=== PATIENT | female | born 1990 | race Caucasian/White ===

== ENCOUNTER → 2017-08-28 | Outpatient (CLI) | payer OTHER ==
[2017-08-28 13:00] LABS: GTGD 50 Grams
[2017-08-29 11:28] LABS: AFP CONCENTRATION 28.4 NG/ML; AFP MULTIPLE OF MEDIAN 1.13; AFPTS GESTATIONAL AGE 16.3 WEEKS; AFPTS INSULIN DEP DIABETIC? NO; AFPTS MATERNAL WT 241 LBS; ALPHA-FETOPROTEIN RACE CAUCASIAN=W; ESTRIOL MULTIPLE OF MEDIAN 2.03; HISTORY OF NTD NO; INHIBIN A 143 PG/ML; INHIBIN A MOM 1.04; REPEAT SAMPLE? NO; hCG MULTIPLE OF MEDIAN 0.72
== END | disposition home or self-care (01) ==
LOC: C.LAB1850 10:29
PROVIDERS: ATTEND Obstetrics & Gynecology
DX: Z34.02 Encounter for supervision of normal first pregnancy, second trimester (principal)

== ENCOUNTER → 2017-09-03 | Outpatient (CLI) | payer OTHER ==
[~2017-09-03] MED LIST: ASPI-435 PO; ASPI81CH2 PO; CLIN150C PO; LABE1TAB28 PO; MTR600X PO; OXYC-57 PO; PRENTAB26 PO; SERT50TA PO
== END | disposition home or self-care (01) ==
LOC: C.LAB1850 12:57
PROVIDERS: ATTEND Obstetrics & Gynecology
DX: I12.9 Hypertensive chronic kidney disease with stage 1 through stage 4 chronic kidney disease, or unspecified chronic kidney disease (principal); N18.1 Chronic kidney disease, stage 1

== ENCOUNTER → 2017-09-04 | Outpatient (CLI) | payer OTHER | END | disposition home or self-care (01) | LOC: C.LABSPEC 14:21 | PROVIDERS: ATTEND Obstetrics & Gynecology | DX: N89.8 Other specified noninflammatory disorders of vagina (principal) ==

== ENCOUNTER → 2017-09-25 | Outpatient (CLI) | payer OTHER ==
[2017-09-25 13:09] LABS: BASO % 0.4 %; BASO ABS # 0.04 K/uL (0-0.2); EOS % 1.2 %; EOS ABS # 0.12 K/uL (0-0.5); HEMATOCRIT 36.4 % (37-47); HEMOGLOBIN 12.3 g/dL (12.0-16.0); IG# 0.02 K/uL (0.00-0.02); LYMPH ABS # 2.38 K/uL (1.2-3.4); MEAN CELL VOLUME 86.9 fL (80-100); MEAN CORPUSCULAR HEMOGLOBIN 29.4 pg (25-34); MEAN CORPUSCULAR HGB CONC 33.8 g/dl (32-36); MEAN PLATELET VOLUME 9.5 fL (7.4-10.4); MONO % 7.2 %; MONO ABS # 0.75 K/uL (0.11-0.59); NEUT ABS # 7.05 K/uL (1.4-6.5); PLATELET COUNT 338 K/uL (130-400); RED CELL DISTRIBUTION WIDTH CV 15.1 % (11.5-14.5); RED CELL DISTRIBUTION WIDTH SD 48.5 fL (36.4-46.3); WHITE BLOOD COUNT 10.36 K/uL (4.8-10.8)
== END | disposition home or self-care (01) ==
LOC: C.LAB1850 11:56
PROVIDERS: ATTEND Obstetrics & Gynecology
DX: O26.812 Pregnancy related exhaustion and fatigue, second trimester (principal); R39.89 Other symptoms and signs involving the genitourinary system

== ENCOUNTER → 2017-11-20 | Outpatient (CLI) | payer OTHER ==
[~2017-11-20] MED LIST changes: -ASPI-435 PO; -CLIN150C PO; -MTR600X PO; -OXYC-57 PO
[2017-11-20 14:39] LABS: HEMATOCRIT 35.1 % (37-47); HEMOGLOBIN 11.7 g/dL (12.0-16.0)
== END | disposition home or self-care (01) ==
LOC: C.LAB1850 12:47
PROVIDERS: ATTEND Obstetrics & Gynecology
DX: Z34.03 Encounter for supervision of normal first pregnancy, third trimester (principal)

== ENCOUNTER 2017-12-02 14:22 | Outpatient (CLI) | payer OTHER ==
[~2017-12-02] VITALS: Ht 157.5 cm; Wt 117.0 kg
[2017-12-02] MEDS ORDERED: PRENTAB26 PO (14:35)
[2017-12-02] MEDS ORDERED: LABE1TAB28 PO (14:35)
[2017-12-02] MEDS ORDERED: ASPI81CH2 PO (14:35)
[2017-12-02] MEDS ORDERED: SERT50TA PO (14:35)
[2017-12-02 14:47] VITALS: Ht 157.5 cm; Wt 117.0 kg
== END 2017-12-02 15:45 | disposition home or self-care (01) ==
LOC: C.OPB 14:22 → C.LD 14:22 → C.OPB 15:45
PROVIDERS: ATTEND Obstetrics & Gynecology
DX: O36.8130 Decreased fetal movements, third trimester, not applicable or unspecified (principal); O36.8330 Maternal care for abnormalities of the fetal heart rate or rhythm, third trimester, not applicable or unspecified; Z3A.30 30 weeks gestation of pregnancy; O99.283 Endocrine, nutritional and metabolic diseases complicating pregnancy, third trimester; N18.1 Chronic kidney disease, stage 1; O16.3 Unspecified maternal hypertension, third trimester; E28.2 Polycystic ovarian syndrome; Z79.82 Long term (current) use of aspirin

== ENCOUNTER → 2017-12-11 | Outpatient (CLI) | payer OTHER ==
[2017-12-11 14:43] LABS: BASO % 0.2 %; BASO ABS # 0.02 K/uL (0-0.2); EOS ABS # 0.12 K/uL (0-0.5); HEMATOCRIT 35.7 % (37-47); HEMOGLOBIN 11.9 g/dL (12.0-16.0); IG# 0.02 K/uL (0.00-0.02); LYMPH ABS # 2.52 K/uL (1.2-3.4); MEAN CELL VOLUME 85.8 fL (80-100); MEAN CORPUSCULAR HEMOGLOBIN 28.6 pg (25-34); MEAN CORPUSCULAR HGB CONC 33.3 g/dl (32-36); MEAN PLATELET VOLUME 8.7 fL (7.4-10.4); MONO % 7.2 %; MONO ABS # 0.83 K/uL (0.11-0.59); NEUT % 69.4 %; NEUT ABS # 7.97 K/uL (1.4-6.5); PLATELET COUNT 375 K/uL (130-400); RED CELL DISTRIBUTION WIDTH SD 43.5 fL (36.4-46.3); WHITE BLOOD COUNT 11.48 K/uL (4.8-10.8)
[2017-12-11 14:54] LABS: ALT/SGPT 18 U/L (12-78); AST/SGOT 10 U/L (15-37); CREATININE 0.59 mg/dl (0.60-1.20); URIC ACID 3.7 mg/dl (2.6-7.2)
== END | disposition home or self-care (01) ==
LOC: C.LAB1850 13:08
PROVIDERS: ATTEND Obstetrics & Gynecology
DX: I12.9 Hypertensive chronic kidney disease with stage 1 through stage 4 chronic kidney disease, or unspecified chronic kidney disease (principal)

== ENCOUNTER 2017-12-26 17:27 | Outpatient (CLI) | payer OTHER ==
--- NOTE | 2018-01-01 09:23 | EDITING REQUIRED CODING QUERY ---
DIAGNOSIS NEEDED To promote full compliance with coding requirements relating to patient care, physician participation is requested in all cases of direct marketing coordinator uncertainty. Please assist us with the question(s) below: Coding Question: The patient received care in labor and delivery on 12/26/17 as noted within the record. Please document the diagnosis that is being addressed by the medication/treatment. Provider Response: DIAGNOSIS: WEEKS OF GESTATION: I was not the doctor of record on 12/26/17. Thank you for your assistance, Allie Lazo - Early Childhood Coordinator
--- NOTE | 2018-01-07 08:15 | EDITING REQUIRED CODING QUERY ---
DIAGNOSIS NEEDED To promote full compliance with coding requirements relating to patient care, physician participation is requested in all cases of data coder operator uncertainty. Please assist us with the question(s) below: Coding Question: The patient received care in labor and delivery on 12/26/17 as noted within the record. Please document the diagnosis that is being addressed by the medication/treatment. Provider Response: DIAGNOSIS: Decreased movement in 3rd trimester 35wk WEEKS OF GESTATION: Thank you for your assistance, Allie Lazo - Educational Technology Coordinator
== END 2017-12-26 18:13 | disposition home or self-care (01) ==
LOC: C.LD 17:27 → C.OPB 17:27
PROVIDERS: ATTEND Obstetrics & Gynecology
DX: O36.8130 Decreased fetal movements, third trimester, not applicable or unspecified (principal); Z3A.35 35 weeks gestation of pregnancy

== ENCOUNTER 2018-01-06 00:27 | Outpatient (CLI) | payer OTHER ==
[~2018-01-06] VITALS: Ht 157.5 cm; Wt 122.7 kg
[2018-01-06 01:08] VITALS: Ht 157.5 cm; Wt 122.7 kg
== END 2018-01-06 01:03 | disposition home or self-care (01) ==
LOC: C.LD 00:27 → C.OPB 00:27
PROVIDERS: ATTEND Obstetrics & Gynecology
DX: O36.8190 Decreased fetal movements, unspecified trimester, not applicable or unspecified (principal); Z3A.00 Weeks of gestation of pregnancy not specified

== ENCOUNTER → 2018-01-15 | Outpatient (CLI) | payer OTHER | END | disposition home or self-care (01) | LOC: C.LABSPEC 13:23 | PROVIDERS: ATTEND Obstetrics & Gynecology | DX: O09.93 Supervision of high risk pregnancy, unspecified, third trimester (principal); Z3A.00 Weeks of gestation of pregnancy not specified ==

== ENCOUNTER 2019-09-20 08:18 | Inpatient (IN) ==
--- OUTSIDE RECORDS SUMMARY | 2019-09-20 08:24 | External Medical Summary | Continuity of Care Document ---
:1990 Author Name Nena M.DIan, Provider Address Unavailable Unavailable , Care Team Providers Name Role Phone Unavailable Unavailable Unavailable GORDON SHARP Unavailable Unavailable Unavailable Unavailable Unavailable Problems Polycystic ovarian syndrome (256.4) (E28.2) Hypertension (401.9) (I10) Hypertensive kidney disease with chronic kidney disease stage I (403.90) (I12.9) MRSA (methicillin resistant staph aureus) culture positive ( V02.54) (Z22.322) Encounter for gynecological examination (V72.31) (Z01.419) Dyspareunia (625.0) Amenorrhea (626.0) (N91.2) Abdominal pain, lower (789.09) (R10.30) Allergies and Adverse Reactions No Known Allergies (Allergy) Medications Labetalol HCl - 100 MG Oral Tablet , M.D. Refills: 0 Zoloft 50 MG Oral Tablet , M.D. Refills: 0 Protonix 40 MG Oral Tablet Delayed Release , M.D. Refills: 0 Procedures History of wisdom tooth extraction Statu s: Completed Immunizations Fluzone Quadrivalent 0.5 ML Intramuscular Suspension On: 10:15 Lot #: [id number], SANOFI PASTEUR Tdap (Adacel) On: 20-Nov-2017 12:52 Lot #: [id number], SANOFI PASTEUR Family History Father Family history of hypertension (V17.49) (Z82.49) Status: Act jitendra Grandmother Family history of hypertension (V17.49) (Z82.49) Status: Act jitendra Grandmother Family history of hypertension (V17.49) (Z82.49) Status: Act jitendra Grandfather Family history of hypertension (V17.49) (Z82.49) Status: Act jitendra Grandfather Family history of hypertension (V17.49) (Z82.49) Status: Act jitendra Mother Family history of hyperlipidemia (V18.19) (Z83.438) Status: Active Family history of endometriosis (V19.8) (Z84.2) Status: Acti ve Family history of ovarian cyst (V18.7) (Z84.2) Status: Activ e Social History - Smoking Status Never smoker Plan of Treatment Planned Observations Planned Goals not documented Results No Known Results Results not documented Encounters Appointment; Ernestina Mckeon M.D. 15-Jun-2018 11:15 Encounter Diagnosis: Problem not documented Appointment; Kavita Hobbs M.D. 18-Mar-2018 10:20 Encounter Diagnosis: Problem not documented Appointment; OB SC1, Nonstress Test 27-Jan-2018 11:00 Encounter Diagnosis: Problem not documented Appointment; OBGYN SC2, Ultrasound 22-Jan-2018 11:30 Encounter Diagnosis: Problem not documented Appointment; Kavita Hobbs M.D. 22-Jan-2018 11:10 Encounter Diagnosis: Problem not documented Appointment; OB SC1, Nonstress Test 22-Jan-2018 10:50 Encounter Diagnosis: Problem not documented Appointment; OBGYN SC1, Ultrasound 22-Jan-2018 10:30 Encounter Diagnosis: Problem not documented Appointment; OB SC1, Nonstress Test 19-Jan-2018 11:00 Encounter Diagnosis: Problem not documented Appointment; OB SC1, Nonstress Test 16-Jan-2018 14:20 Encounter Diagnosis: Problem not documented Appointment; Swapna Manley M.D. 15-Jan-2018 11:50 Encounter Diagnosis: Problem not documented Appointment; OB SC1, Nonstress Test 15-Jan-2018 11:00 Encounter Diagnosis: Problem not documented Appointment; OBGYN SC1, Ultrasound 15-Jan-2018 10:30 Encounter Diagnosis: Problem not documented Appointment; OB SC1, Nonstress Test 12-Jan-2018 11:00 Encounter Diagnosis: Problem not documented Appointment; Ernestina Mckeon M.D. 08-Jan-2018 10:50 Encounter Diagnosis: Problem not documented Appointment; OB SC1, Nonstress Test 08-Jan-2018 10:20 Encounter Diagnosis: Problem not documented Appointment; OBGYN SC2, Ultrasound 08-Jan-2018 10:00 Encounter Diagnosis: Problem not documented Appointment; Rikki Johnson M.D. 01-Jan-2018 10:30 Encounter Diagnosis: Problem not documented Appointment; OB SC1, Nonstress Test 01-Jan-2018 10:00 Encounter Diagnosis: Problem not documented Appointment; OBGYN SC2, Ultrasound 01-Jan-2018 9:45 Encounter Diagnosis: Problem not documented Appointment; Kavita Hobbs M.D. 25-Dec-2017 10:50 Encounter Diagnosis: Problem not documented Appointment; OB SC1, Nonstress Test 25-Dec-2017 10:20 Encounter Diagnosis: Problem not documented Appointment; OBGYN SC2, Ultrasound 25-Dec-2017 10:00 Encounter Diagnosis: Problem not documented Appointment; Noreen Mensah M.D. 18-Dec-2017 11:20 Encounter Diagnosis: Problem not documented Appointment; OB SC1, Nonstress Test 18-Dec-2017 10:50 Encounter Diagnosis: Problem not documented Appointment; OBGYN SC1, Ultrasound 18-Dec-2017 10:30 Encounter Diagnosis: Problem not documented Appointment; Rikki Johnson M.D. 04-Dec-2017 11:10 Encounter Diagnosis: Problem not documented Appointment; OB SC1, Nonstress Test 02-Dec-2017 13:00 Encounter Diagnosis: Problem not documented Appointment; Katie Palacios DO 20-Nov-2017 11:40 Encounter Diagnosis: Problem not documented Appointment; OBGYN SC2, Ultrasound 20-Nov-2017 11:00 Encounter Diagnosis: Problem not documented Appointment; Swapna Manley M.D. 24-Oct-2017 11:30 Encounter Diagnosis: Problem not documented Appointment; OBGYN SC1, Ultrasound 24-Oct-2017 11:00 Encounter Diagnosis: Problem not documented Appointment; OB SC1, Nursing Station 16-Oct-2017 13:45 Encounter Diagnosis: Problem not documented Appointment; Noreen Mensah M.D. 26-Sep-2017 10:30 Encounter Diagnosis: Problem not documented
[2019-09-20] MEDS ORDERED: OXYTOCIN 30 UNITS/500 ML BAG IV PRN (08:28)
[2019-09-20] MEDS ORDERED: ACETAMINOPHEN 325 MG TAB PO PRN (08:28)
[2019-09-20] MEDS ORDERED: HYDROCORTISONE ACETATE 25 MG SUPP PR PRN ×2 (08:28→12:34)
[2019-09-20] MEDS ORDERED: DIPHTHERIA/TETANUS/PERTUSSIS 0.5 ML SYR/VIAL IM ONE (08:28)
[2019-09-20] MEDS ORDERED: bisacodyL 10 MG SUPP PR PRN (08:28)
[2019-09-20] MEDS ORDERED: SUPERCREAM 0.870% 15 GM JAR EXT PRN ×2 (08:28→12:34)
[2019-09-20] MEDS ORDERED: BENZOCAINE 20% AER SPR 82.5 GM CAN EXT PRN ×2 (08:28→12:34)
[2019-09-20] MEDS: LACTATED RINGER'S 1,000 ML IV SCH ×2 (08:55→22:27)
[2019-09-20] MEDS ORDERED: CITRIC ACID/SODIUM CITRATE 15 ML UDC PO SCH (09:15)
[2019-09-20 09:17] LABS: Basophils # (auto) 0.02 K/uL (0-0.2); Basophils % (auto) 0.1 %; Eosinophils # (auto) 0.13 K/uL (0-0.5); Eosinophils % (auto) 0.9 %; Hemoglobin 12.5 g/dL (12.0-16.0); Immature Granulocytes # (auto) 0.02 K/uL (0.00-0.02); Immature Granulocytes % (auto) 0.1 %; Lymphocytes % (auto) 18.8 %; Mean Corpuscular Hemoglobin 28.2 pg (25-34); Mean Corpuscular Volume 85.6 fL (80-100); Mean Platelet Volume 9.1 fL (7.4-10.4); Monocytes # (auto) 0.86 K/uL (0.11-0.59); Monocytes % (auto) 6.2 %; Neutrophils # (auto) 10.21 K/uL (1.4-6.5); Neutrophils % (auto) 73.9 %; Platelet Count 332 K/uL (130-400); RDW Coefficient of Variation 15.1 % (11.5-14.5); Red Blood Count 4.44 M/uL (4.2-5.4); White Blood Count 13.84 K/uL (4.8-10.8)
--- NOTE | 2019-09-20 09:27 | Obstetrical Progress Note ---
Date of Service September 20, 2019 Subjective Admit Note 28 F P1001 admitted with SROM clear fluid this AM. Patient is a repeat C- section who does not want a TOLAC. Her GBS is negative. She has chronic hypertension on Labetalol 100 mg PO daily and well controlled BP. Consents signed. H&P dictated. Results & Data Vital Signs (Past 12 Hours) Vital Signs Pulse BP Pulse Ox 09/20/19 09:18 87 99 09/20/19 09:13 95 H 100 09/20/19 09:08 97 H 100 09/20/19 09:03 93 H 100 09/20/19 08:58 111 H 100 09/20/19 08:27 90 136/63
[2019-09-20] MEDS ORDERED: CEFAZOLIN 3000MG 72.5 ML IV SCH (09:30)
[2019-09-20 09:34] LABS: Mean Corpuscular Hgb Conc 32.9 g/dL (32-36)
[2019-09-20] MEDS ORDERED: MoRPHine SULFATE PF 1 MG/ML 10 ML AMP/VIAL ONE (09:40)
[2019-09-20] MEDS ORDERED: fentaNYL citrate 100 MCG/2 ML VIAL ONE (09:41)
--- NOTE | 2019-09-20 09:46 | Anesthesiology Consultation ---
Date of Service September 20, 2019 Assessment & Plan (1) Encounter for pre-operative examination: Chart Review Chart Review: Acceptable Risk for Surgery and Patient NOT seen in Pre Admission Testing Consults Requested none History Surgery Operation Date: 09/20/19 09:30 Proposed Procedures p Section in LD - Andrew Streeter MD Height/Weight Height: 5 ft 2 in Weight: 136.985 kg Allergies Allergy/AdvReac Type Severity Reaction Status Date / Time No Known Allergies Allergy Unverified 02/04/18 22:22 Medications Home Medications Medication Instructions Recorded Confirmed Last Taken Labetalol (Normodyne) 100 mg PO DAILY #0 tab 12/02/17 09/20/19 1 Day Ago ~09/19/19 Multivit/Min/Iron/Fol Ac/Pren 1 tab PO DAILY #0 tab 12/02/17 1 Day Ago ( Vitamin) ~09/19/19 NPO Date Last Intake of Fluids: 09/20/19 Time Last Intake of Fluids: 04:00 Date Last Intake of Solids: 09/20/19 Time Last Intake of Solids: 00:00 Past Medical History Medical History (Updated 09/20/19 @ 09:46 by Rohan Moody MD) Hypertension Morbid obesity Past Surgical History Surgical History Hx of section [place] teeth extracted Social History Smoking Status: Never smoker Do You Dip or Chew Tobacco: No Hx Alcohol Use: No Hx Substance Use: No substance use type: does not use Physical Exam Vital Signs Last Vital Signs Temp 37.1 C 09/20/19 09:00 Pulse 96 H 09/20/19 09:43 Resp 18 09/20/19 09:00 BP 156/82 H 09/20/19 09:28 Pulse Ox 100 09/20/19 09:43 Testing Laboratory Results 09/20/19 09:04
[2019-09-20] MEDS ORDERED: OXYTOCIN 10 UNITS/ML VIAL ONE ×2 (09:51→11:20)
--- NOTE | 2019-09-20 10:02 | History and Physical Report ---
REASON FOR ADMISSION: Repeat section with spontaneous rupture of membranes in labor. HISTORY OF PRESENT ILLNESS: The patient is a 28-year-old female, para 1-0-0-1 at 37 weeks and 2 days, admitted with spontaneous rupture of membranes this morning at 6:30. She claims that all weekend, she was possibly leaking, did not show up to the labor room or call. PAST MEDICAL HISTORY: Includes chronic hypertension, history of section, history of preeclampsia, class 3 obesity, 2-vessel umbilical cord and her GBS is negative. SOCIAL HISTORY: Denies smoking, alcohol or drug use. FAMILY HISTORY: Non-contributory ROS: neg MEDICATIONS: Include aspirin 81 mg daily, vitamins daily, Protonix 40 mg daily, and labetalol 100 mg p.o. daily. ALLERGIES: No known drug allergies. PHYSICAL EXAMINATION: VITAL SIGNS: Blood pressure 136/63, pulse 87, O2 sat 99. Her weight is 136.98 kilograms for a BMI of 55.2. HEENT: Within normal limits. LUNGS: Clear to auscultation. COR: Regular rate and rhythm. ABDOMEN: Soft, gravid, class 3 obesity. heart tones category 1. EXTREMITIES: Within normal limits. No edema. NEUROLOGIC: Intact. ASSESSMENT: Term at 37 weeks and 2 days with spontaneous rupture of membranes, admitted for a repeat section, declining trial of labor after . LUANND
[2019-09-20] MEDS ORDERED: ONDANSETRON INJ 2 MG/ML 2 ML VIAL ONE (11:20)
--- NOTE | 2019-09-20 12:08 | Post Operative Brief Note ---
Immediate Post Op Note v1 Date of Surgery September 20, 2019 Pre & Post Diagnosis Operation Date: 09/20/19 09:30 Pre-Op Diagnosis: 1. Rupture of membranes 2. Patient desires Repeat . Post-Op Diagnosis: 1. Rupture of membranes 2. Patient desires Repeat . I identified the patient and participated in the time-out.: Yes Procedure Operation Date: 09/20/19 09:30 Actual Procedures p Section in LD Live Female @ 1103(Not Applicable) - Andrew Streeter MD Surgeon Andrew Streeter MD Regional Owner Operator Truck Driver Dr Braden Estimated Blood Loss 500 Findings Consistent with Post-Op Diagnosis Drains Adam Catheter
[2019-09-20] MEDS ORDERED: KETOROLAC 30 MG/ML VIAL IV PRN ×2 (12:34→14:48)
[2019-09-20] MEDS ORDERED: MAGNESIUM HYDROXIDE SUSP 30 ML UDC PO PRN (12:34)
[2019-09-20] MEDS ORDERED: ONDANSETRON INJ 2 MG/ML 2 ML VIAL IV PRN ×2 (12:34→14:48)
[2019-09-20] MEDS ORDERED: IBUPROFEN 600 MG TAB PO PRN (12:34)
[2019-09-20] MEDS ORDERED: MEASLES, MUMPS & RUBELLA VIRUS VIAL SQ ONE (12:34)
[2019-09-20] MEDS ORDERED: DiphenhydrAMINE HCL 50 MG/ML VIAL IV PRN ×2 (12:34→14:48)
[2019-09-20] MEDS ORDERED: SENNA 8.6 MG TAB PO PRN (12:34)
[2019-09-20] MEDS ORDERED: PROMETHAZINE HCL 25 MG in SODIUM CHLORIDE 0.9% 50 ML IV PRN (12:34)
--- NOTE | 2019-09-20 12:46 | Operative Report ---
PREOPERATIVE DIAGNOSIS: at 37 weeks and 2 days with spontaneous rupture of membranes, elective repeat section. POSTOPERATIVE DIAGNOSIS: at 37 weeks and 2 days with spontaneous rupture of membranes, elective repeat section. PROCEDURE: Repeat section, low segment transverse. SURGEON: Andrew Streeter MD BROKERAGE BRANCH MANAGER: Myron Braden. ANESTHESIA: Spinal. CLINICAL HISTORY: The patient is a 28-year-old female, para 1-0-0-1 at 37 weeks and 2 days, admitted today with spontaneous rupture of membranes this morning. Planning for a repeat section. The patient does not want a trial of labor after . The patient was identified prior to the start of procedure and antibiotics were given preop. DESCRIPTION OF PROCEDURE: Under satisfactory spinal anesthesia, the patient was prepped and draped in usual sterile fashion. A low Pfannenstiel incision was made, carrying the incision down through the abdomen in successive layers without difficulty. Upon entering into the abdominal cavity, a bladder flap was then made with sharp and blunt dissection with Metzenbaum scissors. A low segment transverse incision over the lower uterine segment was made. The incision was widened in the AP diameter with blunt dissection. Clear fluid was noted. The amniotic sac was nicked. The was then delivered from the vertex presentation with the aid of fundal pressure delivering a live female. The cord was delayed cord clamping for 1 minute, doubly clamped and cut. Apgars 9 and 9, weight 5 pounds 15 ounces, live female. Cord blood was obtained. Placenta delivered spontaneously and intact. Uterus was then exteriorized. Ring forceps were then placed on both angles and inferior margin. Another ring was then used to dilate the cervix. Clean lap was used to clean the uterus of all debris and clots. No active bleeding was noted. The uterus was closed in double layer closure with 0 Vicryl suture in a continuous interlocking fashion followed by a second imbricating suture of 0 Vicryl suture. Tubes and ovaries bilaterally were found to be within normal limits. The initial sponge, needle and instrument count were found to be correct. Uterus was then placed back into the normal anatomical position. Irrigation was then used to clear No active bleeding was noted. The fascia was then reapproximated from both ends using 0 Vicryl suture in a continuous fashion. Subcuticular space was then irrigated and then closed with 3-0 plain suture interrupted, followed by another layer of irrigation and then 4-0 Monocryl suture for the skin. The GREGORY dressing was then applied. All remaining sponge, needle and instrument counts were found to be correct. TOTAL FLUIDS: 2600 mL. URINE OUTPUT: 225 mL. ESTIMATED BLOOD LOSS: 500 mL. The patient tolerated the procedure well. She was moved to recovery room in stable condition. ELENA
--- NOTE | 2019-09-20 12:54 | Anesthesiology Progress Note ---
Date of Service September 20, 2019 Anesthesia Post Procedure Vital Signs Vital Signs: Temp Pulse Resp BP Pulse Ox 09/20/19 12:48 72 100 09/20/19 12:43 80 100 09/20/19 12:38 78 114/57 L 100 09/20/19 12:33 80 100 09/20/19 12:28 75 95 09/20/19 12:27 36.8 C 76 18 121/58 L 91 09/20/19 12:23 86 100 09/20/19 12:18 77 100 09/20/19 12:17 79 18 125/60 09/20/19 12:14 92 H 91 09/20/19 12:13 90 100 09/20/19 12:08 78 99 09/20/19 12:07 71 18 123/62 09/20/19 12:03 73 100 09/20/19 11:58 76 100 09/20/19 11:55 78 120/74 09/20/19 11:54 36.6 C 20 09/20/19 11:53 83 100 09/20/19 10:28 90 100 09/20/19 10:23 96 H 100 09/20/19 10:06 18 09/20/19 09:58 91 H 98 09/20/19 09:53 97 H 97 09/20/19 09:48 95 H 98 09/20/19 09:43 96 H 100 09/20/19 09:38 98 H 100 09/20/19 09:33 89 99 09/20/19 09:28 94 H 156/82 H 100 09/20/19 09:23 84 100 09/20/19 09:18 87 99 09/20/19 09:13 95 H 100 09/20/19 09:08 97 H 100 09/20/19 09:03 93 H 100 09/20/19 09:00 37.1 C 18 09/20/19 08:58 111 H 100 09/20/19 08:27 90 136/63 Transfer of Care Handoff Completed per policy Notes Mental Status: alert / awake / arousable Patient Amnestic to Procedure: Yes Nausea / Vomiting: adequately controlled Pain: adequately controlled Airway Patency, RR, SpO2: stable & adequate BP & HR: stable & adequate Hydration State: stable & adequate Neuraxial Anesthesia: was administered and sensory block is resolving Anesthetic Complications: no major complications apparent and Pt Satisfied with anesthetic care
[2019-09-20] MEDS ORDERED: OXYTOCIN 20 UNITS in LACTATED RINGER'S 1,000 ML IV SCH (13:00)
[2019-09-20] MEDS: SIMETHICONE 80 MG CHEW PO SCH ×3 (14:38→21:21)
[2019-09-20] MEDS ORDERED: NALOXONE HCL 0.4 MG/1 ML VIAL/CARP IV PRN (14:48)
[2019-09-20] MEDS ORDERED: MoRPHine SULFATE PF 1 MG/ML 10 ML AMP/VIAL INT SPINAL ONE (14:48)
[2019-09-20] MEDS ORDERED: LACTATED RINGER'S 500 ML IV PRN (14:48)
[2019-09-20] MEDS ORDERED: NALOXONE HCL 1 MG in SODIUM CHLORIDE 0.9% 1000ML 1,000 ML IV PRN (14:48)
[2019-09-20] MEDS ORDERED: ePHEDrine sulfate 50 MG/ML AMP IV PRN (14:48)
[2019-09-20] MEDS ORDERED: NALBUPHINE HCL INJ 10 MG/ML AMP IV PRN (14:48)
[2019-09-20] MEDS ORDERED: NALOXONE HCL 0.08 MG in SYRINGE 1.8 ML IV PRN (14:48)
[2019-09-20] MEDS ORDERED: HYDROmorphone INJ 0.5 MG/0.5 ML SYR IV PRN (14:48)
[2019-09-20] MEDS ORDERED: NO NARCOTICS OR SEDATIVES SCH (15:00)
[2019-09-20] MEDS ORDERED: SODIUM CHLORIDE 0.9% 1000ML 1,000 ML IV SCH (15:00)
[2019-09-20] MEDS ORDERED: DC INTRASPINAL MORPHINE SCH (15:00)
[2019-09-20] MEDS ORDERED: DOCUSATE SODIUM 100 MG CAP PO SCH (21:00)
[2019-09-20] MEDS: DOCUSATE SODIUM 100 MG CAP PO SCH (21:21)
[2019-09-21] MEDS ORDERED: CEFAZOLIN 3000MG 65 ML IV SCH (06:00)
[2019-09-21] MEDS ORDERED: CEFAZOLIN 2000MG 2,000 MG/15 ML SYR IV SCH (06:00)
[2019-09-21 06:42] LABS: Basophils # (auto) 0.03 K/uL (0-0.2); Basophils % (auto) 0.2 %; Eosinophils # (auto) 0.12 K/uL (0-0.5); Eosinophils % (auto) 0.9 %; Hematocrit (blood only) 34.6 % (37-47); Hemoglobin 11.3 g/dL (12.0-16.0); Immature Granulocytes # (auto) 0.02 K/uL (0.00-0.02); Immature Granulocytes % (auto) 0.1 %; Lymphocytes # (auto) 1.95 K/uL (1.2-3.4); Lymphocytes % (auto) 13.9 %; Mean Corpuscular Hemoglobin 27.8 pg (25-34); Mean Corpuscular Hgb Conc 32.7 g/dL (32-36); Mean Corpuscular Volume 85.2 fL (80-100); Mean Platelet Volume 8.7 fL (7.4-10.4); Monocytes # (auto) 0.95 K/uL (0.11-0.59); Monocytes % (auto) 6.8 %; Neutrophils # (auto) 10.95 K/uL (1.4-6.5); Neutrophils % (auto) 78.1 %; Platelet Count 308 K/uL (130-400); RDW Coefficient of Variation 15.2 % (11.5-14.5); RDW Standard Deviation 47.1 fL (36.4-46.3); Red Blood Count 4.06 M/uL (4.2-5.4); White Blood Count 14.02 K/uL (4.8-10.8)
[2019-09-21] MEDS ORDERED: PRENATAL VITAMIN 1 TAB PO SCH ×2 (08:00→09:00)
[2019-09-21] MEDS: SIMETHICONE 80 MG CHEW PO SCH ×4 (08:40→21:12)
[2019-09-21] MEDS: PANTOprazole 40 MG TAB PO SCH (08:40)
[2019-09-21] MEDS: PRENATAL VITAMIN 1 TAB PO SCH (08:40)
[2019-09-21] MEDS: DOCUSATE SODIUM 100 MG CAP PO SCH ×2 (08:40→21:12)
[2019-09-21] MEDS: FERROUS SULFATE 325 MG TAB PO SCH (08:40)
[2019-09-21] MEDS: LABETALOL HCL 100 MG TAB PO SCH (08:41)
[2019-09-21] MEDS: IBUPROFEN 600 MG TAB PO PRN ×4 (08:53→23:46)
--- NOTE | 2019-09-21 09:41 | Obstetrical Progress Note ---
Date of Service September 21, 2019 Assessment & Plan (1) delivery delivered: c/secc day #1 Pt doing well continue day #1 care Subjective Ambulation: ambulating normally Voiding: no voiding problems Passing Gas:: Yes Diet Tolerance:: clear liquids Lochia:: Small Feeding Type:: breast feeding Review of Systems All systems reviewed & are unremarkable except as noted in HPI & below Physical Exam Constitutional WD/WN, vitals as above well developed and well nourished Eyes PERRL, conjunctivae normal, anicteric sclerae ENMT external ear and nose normal, oropharynx normal Neck trachea midline, no thyromegaly Respiratory normal respiratory effort, lungs clear to auscultation Cardiovascular RRR, no murmur, no edema Chest (Breasts) normal inspection/palpation of breasts Gastrointestinal (Abdomen) normal bowel sounds, soft, nontender, no hepatosplenomegaly Musculoskeletal no cyanosis or clubbing, extremities motor strength 5/5 Skin no rashes, warm and dry + incision (Clean,dry and intact) Neurologic patellar DTR's 2+ bilat, sensation intact Psychiatric A+Ox3, euthymic affect Genitourinary normal external appearance Lymphatic no cervical or axillary lymphadenopathy Results & Data Vital Signs (Past 12 Hours) Vital Signs Temp Pulse Resp BP Pulse Ox 09/21/19 06:00 18 98 09/21/19 05:15 18 96 09/21/19 04:30 37.4 C 116 H 16 140/81 97 09/21/19 03:30 16 96 09/21/19 02:30 18 98 09/21/19 01:30 16 97 09/21/19 00:30 16 98 09/20/19 23:40 37.6 C H 119 H 18 125/77 97 09/20/19 22:13 20 97
[2019-09-21] MEDS: OXYCODONE/ACETAMINOPHEN 5mg/325mg TAB PO PRN ×4 (10:31→23:46)
[2019-09-21] MEDS ORDERED: bisacodyL 5 MG TABEC PO SCH ×2 (20:00)
--- NOTE | 2019-09-21 20:23 | Anesthesiology Progress Note ---
Date of Service September 21, 2019 Anesthesia Post Procedure Vital Signs Vital Signs: Temp Pulse Resp BP Pulse Ox 09/21/19 16:30 37.2 C 97 H 18 131/84 97 09/21/19 08:30 37.2 C 114 H 18 146/89 H 98 09/21/19 08:00 18 98 09/21/19 07:00 16 99 09/21/19 06:00 18 98 09/21/19 05:15 18 96 09/21/19 04:30 37.4 C 116 H 16 140/81 97 09/21/19 03:30 16 96 09/21/19 02:30 18 98 09/21/19 01:30 16 97 09/21/19 00:30 16 98 09/20/19 23:40 37.6 C H 119 H 18 125/77 97 09/20/19 22:13 20 97 09/20/19 21:15 20 96 Pain Intensity Lower Abdomen: Pain Intensity: 3 Transfer of Care Handoff Completed per policy Notes Mental Status: alert / awake / arousable Patient Amnestic to Procedure: Yes Nausea / Vomiting: adequately controlled Pain: adequately controlled Airway Patency, RR, SpO2: stable & adequate BP & HR: stable & adequate Hydration State: stable & adequate Anesthetic Complications: no major complications apparent
[2019-09-22 06:31] LABS: Hematocrit (blood only) 31.3 % (37-47); Hemoglobin 10.3 g/dL (12.0-16.0)
--- NOTE | 2019-09-22 07:46 | Obstetrical Progress Note ---
Date of Service September 22, 2019 Subjective Patient is seen and examined. She feels well, no complaints. Likes to be discharged Pain is under control with oral meds. Ambulating without dizziness Voiding without difficulty Tolerating regular diet with out N&V Flatus + BM neg Bleeding is minimal No fever/ chills/ CP/ SOB/ N&V/ Leg pain Breast feeding without problems Vital Signs Temp Pulse Resp BP Pulse Ox 09/21/19 23:35 36.9 C 89 20 138/84 98 09/21/19 16:30 37.2 C 97 H 18 131/84 97 09/21/19 08:30 37.2 C 114 H 18 146/89 H 98 09/21/19 08:00 18 98 Lab Results 09/20/19 09/20/19 09/21/19 Range/Units 09:04 13:55 06:23 WBC 13.84 H 14.02 H (4.8-10.8) K/uL RBC 4.44 4.06 L (4.2-5.4) M/uL Hgb 12.5 11.3 L (12.0-16.0) g/dL Hct 38.0 34.6 L (37-47) % MCV 85.6 85.2 (80-100) fL MCH 28.2 27.8 (25-34) pg MCHC 32.9 32.7 (32-36) g/dL RDW Std Deviation 47.0 H 47.1 H (36.4-46.3) fL RDW Coeff of Melita 15.1 H 15.2 H (11.5-14.5) % Plt Count 332 308 (130-400) K/uL MPV 9.1 8.7 (7.4-10.4) fL Immature Gran % (Auto) 0.1 0.1 % Neut % (Auto) 73.9 78.1 % Lymph % (Auto) 18.8 13.9 % [place] % (Auto) 6.2 6.8 % Eos % (Auto) 0.9 0.9 % Baso % (Auto) 0.1 0.2 % Immature Gran # (Auto) 0.02 0.02 (0.00-0.02) K/uL Neut # (Auto) 10.21 H 10.95 H (1.4-6.5) K/uL Lymph # (Auto) 2.60 1.95 (1.2-3.4) K/uL [place] # (Auto) 0.86 H 0.95 H (0.11-0.59) K/uL Eos # (Auto) 0.13 0.12 (0-0.5) K/uL Baso # (Auto) 0.02 0.03 (0-0.2) K/uL Nasal Screen MRSA (PCR) Negative (Negative) 09/22/19 Range/Units 06:15 WBC (4.8-10.8) K/uL RBC (4.2-5.4) M/uL Hgb 10.3 L (12.0-16.0) g/dL Hct 31.3 L (37-47) % MCV (80-100) fL MCH (25-34) pg MCHC (32-36) g/dL RDW Std Deviation (36.4-46.3) fL RDW Coeff of Melita (11.5-14.5) % Plt Count (130-400) K/uL MPV (7.4-10.4) fL Immature Gran % (Auto) % Neut % (Auto) % Lymph % (Auto) % [place] % (Auto) % Eos % (Auto) % Baso % (Auto) % Immature Gran # (Auto) (0.00-0.02) K/uL Neut # (Auto) (1.4-6.5) K/uL Lymph # (Auto) (1.2-3.4) K/uL [place] # (Auto) (0.11-0.59) K/uL Eos # (Auto) (0-0.5) K/uL Baso # (Auto) (0-0.2) K/uL Nasal Screen MRSA (PCR) (Negative) PE: General: Alert, orientedx3, NAD CVS: S1S2 RRR Lungs; CTAB Abd: soft, NT, ND, BS+, fundus firm, below Umbilicus Incision/ Dressing: Clean, dry, intact Perineum intact, Lochia rubra minimal Ext; NT, no edema AP: 28 yo s/p C Section, pod# 2 VSS Afebrile doing well Continue routine postop care Encourage ambulation, PO intake All questions were answered D/C home in the afternoon Results & Data Vital Signs (Past 12 Hours) Vital Signs Temp Pulse Resp BP Pulse Ox 09/21/19 23:35 36.9 C 89 20 138/84 98
[2019-09-22] MEDS: PRENATAL VITAMIN 1 TAB PO SCH (07:53)
[2019-09-22] MEDS: FERROUS SULFATE 325 MG TAB PO SCH (07:53)
[2019-09-22] MEDS: PANTOprazole 40 MG TAB PO SCH (07:53)
[2019-09-22] MEDS: DOCUSATE SODIUM 100 MG CAP PO SCH (07:53)
[2019-09-22] MEDS: SIMETHICONE 80 MG CHEW PO SCH ×3 (07:53→16:14)
[2019-09-22] MEDS: IBUPROFEN 600 MG TAB PO PRN ×3 (07:54→16:13)
[2019-09-22] MEDS: OXYCODONE/ACETAMINOPHEN 5mg/325mg TAB PO PRN ×3 (07:54→16:13)
[2019-09-22] MEDS: LABETALOL HCL 100 MG TAB PO SCH (11:56)
[2019-09-22] MEDS ORDERED: bisacodyL 10 MG SUPP PR PRN (12:06)
== END 2019-09-22 19:00 | disposition home or self-care (01) | DRG 807 ==
LOC: OPB 08:18 → 4S1 08:19 → 4S2 14:36

== ENCOUNTER 2022-02-21 10:32 | Observation (INO) ==
--- NOTE | 2022-02-20 12:46 | Anesthesiology Consultation ---
Date of Service February 20, 2022 Assessment & Plan (1) Encounter for pre-operative examination: Chart Review Chart Review: Acceptable Risk for Surgery (pending preop Covid testing results) and Patient NOT seen in Pre Admission Testing - Check test AM DOS Per nursing assessment 02/20/22, pt denies any recent travel. Did test Covid negative at [facility] on 02/08/22 prior to . No known Covid positive exposures or Covid related symptoms. No known Covid infection in the past 90 days. Pt is NOT vaccinated for Covid. Pt will get Covid test 02/20/22 at [facility]= will await results Per wound clinic note 02/19/2022 = patient underwent at [facility] in [place] on 02/08/2022 and on 02/13/2022 the patient had a wound dehiscence which was treated then packed with iodoform and 4 x 4 gauze. Patient was referred to wound clinic. Plan is to take patient back to operating room to open up wound so that it can be debrided and VAC system applied. At this time continue with iodoform packing and change daily until patient can be seen by surgeon hopefully in the next few days. Last seen by cardiology 01/02/2022 = patient seen for routine follow-up. Patient with PMH of hypertension, obesity, palpitations. Has done well since last visit. Continues to have palpitations that have increased today but this has progressed. Patient's HR is very sensitive to caffeine- can limit palpitations by avoid caffeine. Continue current cardiac medications. Patient is now in third trimester of and except for occasional palpitations she is doing well. Echo was normal. History Surgery Operation Date: 02/21/22 11:50 Proposed Procedures p Incisional Debridement with Vac Placement - Patrick Sheppard MD, FACS Height/Weight Height: 5 ft 2 in Weight: 122.47 kg Allergies Allergy/AdvReac Type Severity Reaction Status Date / Time No Known Allergies Allergy Verified 02/20/22 13:56 Medications Home Medications Medication Instructions Recorded Confirmed Last Taken pantoprazole 40 mg tablet,delayed 40 mg PO QAM 03/29/20 02/20/22 01/24/22 14:00 release (Protonix) cholecalciferol (vitamin D3) 25 25 mcg PO QAM 01/24/22 02/20/22 01/24/22 14:00 mcg (1,000 unit) capsule (Vitamin D3) prenat.vits,navi,sjd-ruqw-zseat 1 tab PO QAM 01/24/22 02/20/22 01/24/22 14:00 labetalol 100 mg tablet 200 mg PO BID tab 02/19/22 02/20/22 Unknown Past Medical History Medical History History of COVID-19 Diagnosed 07/2020--mild symptoms, no symptoms now Hypertension Follows with Dr. Mott in [place] Morbid obesity BMI 49.4 Scoliosis Stage 1 chronic kidney disease Follows every 6 months with [facility] in [place] Past Family History Family History Other No family history of adverse response to anesthesia Past Surgical History Surgical History History of colonoscopy History of esophagogastroduodenoscopy (EGD) Hx of section x3--last 02/08/22 (pt states she is BOTTLE FEEDING ) [place] teeth extracted Social History Smoking Status: Never smoker Do You Dip or Chew Tobacco: No Hx Alcohol Use: No Hx Substance Use: No substance use type: does not use Lab Results Anesthesia Preop Results Results Anesthesia Widget: WBC 13.59 K/uL (4.8-10.8) H 01/24/22 Hgb 12.3 g/dL (12.0-16.0) 01/24/22 Hct 37.2 % (37-47) 01/24/22 Plt 357 K/uL (130-400) 01/24/22 Na 137 mmol/L (136-145) 01/24/22 K 4.0 mmol/L (3.5-5.1) 01/24/22 Cl 106 mmol/L (98-107) 01/24/22 CO2 23 mmol/L (21-32) 01/24/22 BUN 10 mg/dl (6-23) 01/24/22 Creat 0.74 mg/dl (0.6-1.2) 01/24/22 Glucose Level 80 mg/dl (70-99(Fasting)) 01/24/22 Testing Electrocardiogram Date: 10/03/21 Sinus rhythm at 77 bpm Low voltage QRS in precordial leads Normal variant of EKG. Echocardiogram Date: 10/10/21 EF: 55-60% LV Function: normal RWMA: + none Other Findings: no LVH or no diastolic dysfunction Mild right and left atrial enlargement with otherwise normal cardiac chamber dimensions Aortic root normal in diameter. Borderline pulmonary hypertensionPASP 26-31 mmHg. Stress Test Date: 08/21/18 Type: exercise Baseline EKG showed NSR and was otherwise normal. During exercise the EKG showed sinus tachycardia with no significant STT changes. Physiologic BP response to exercise. Impression: Negative exercise graded test for ischemia.
[~2022-02-21 10:32] MED LIST changes: -ASPI81CH2 PO; -LABE1TAB28 PO; +LR 15ML/HR IV SCH; -PRENTAB26 PO; -SERT50TA PO
--- NOTE | 2022-02-21 11:39 | History & Physical Bridge Note ---
Date of Service February 21, 2022 History & Physical Bridge Note I have examined the patient, reviewed the History & Physical and in the interval since the performance of the History & Physical I have noted the following changes of clinical significance: no changes noted pt marked all question answered mother at bedside
[2022-02-21] MEDS ORDERED: ATROPINE SULFATE 0.1 MG/ML 10ML SYR IV PRN (12:02)
[2022-02-21] MEDS ORDERED: ONDANSETRON INJ 2 MG/ML 2 ML VIAL IV PRN ×2 (12:02→15:19)
[2022-02-21] MEDS ORDERED: HYDROmorphone INJ 2 MG/ML SYR/VIAL IV PRN (12:02)
[2022-02-21] MEDS ORDERED: fentaNYL citrate 100 MCG/2 ML VIAL IV PRN (12:02)
[2022-02-21] MEDS ORDERED: ePHEDrine sulfate 50 MG/ML AMP IV PRN (12:02)
[2022-02-21] MEDS ORDERED: ONDANSETRON INJ 2 MG/ML 2 ML VIAL ONE ×2 (12:06→12:07)
[2022-02-21] MEDS ORDERED: PROPOFOL IV EMULSION 10 MG/ML 20 ML VIAL IV ONE (12:06)
[2022-02-21] MEDS ORDERED: fentaNYL citrate 100 MCG/2 ML VIAL ONE (12:06)
[2022-02-21] MEDS ORDERED: MIDAZOLAM HCL 1 MG/ML 2ML VIAL ONE (12:06)
[2022-02-21] MEDS ORDERED: ceFAZolin 330 MG/ML 1 GM VIAL ONE ×2 (12:19→12:21)
[2022-02-21] MEDS ORDERED: BUPIVACAINE 0.5 % 5 MG/1 ML MPF 30ML VIAL ONE (12:26)
--- NOTE | 2022-02-21 12:54 | Post Operative Brief Note ---
PG Immediate Post Op with CF Date of Surgery February 21, 2022 Pre & Post Diagnosis Operation Date: 02/21/22 11:50 Pre-Op Diagnosis: Pfannenstiel Wound Dehiscence Post-Op Diagnosis: Pfannenstiel Wound Dehiscence I identified the patient and participated in the time-out.: Yes Procedure Operation Date: 02/21/22 11:50 Actual Procedures p Irrigation and Debridement of Pfannenstiel Wound Dehiscence(Not Applicable) - Patrick Sheppard MD, FACS Surgeon Patrick Sheppard MD, FACS Compensator sterling jacobs Estimated Blood Loss 50 Findings Consistent with Post-Op Diagnosis Specimens Specimen Description: Cutlure #1--Incision--for routine culture and sensitivity, gram stain, aerobes and anerobes
--- NOTE | 2022-02-21 13:31 | Operative Report ---
PG Post Operative Report Pre & Post Diagnosis Operation Date: 02/21/22 11:50 Pre-Op Diagnosis: Pfannenstiel Wound Dehiscence Post-Op Diagnosis: Pfannenstiel Wound Dehiscence I identified the patient and participated in the time-out.: Yes Procedure Operation Date: 02/21/22 11:50 Actual Procedures p Irrigation and Debridement of Pfannenstiel Wound Dehiscence, Unroofing of Wound Closure, Culture and Sensitivity and Packing of Wound(Not Applicable) - Patrick Sheppard MD, FACS The patient was brought into the operating theater in the supine position IV sedation was given the dressing and packing that had been in in the Pfannenstiel incision was removed we then prepped the area with Betadine solution properly draped a timeout was had patient was identified this point we infiltrated both sides of the incision with 0.5% Marcaine without epi approximately 30 cc was used The patient had 3 opening in the incision the most lateral one on the right lower quadrant extension of the finger is still was more prominent 1 therefore we enlarged and the skin incision and were able to insert a finger into the cavity which is new extensive quite significantly in the left lower quadrant as we have seen in the office white surgical finger we identified that the cavity was prominent bilaterally at the skin incision the subcutaneous tissue was held together but underneath there was no healing process appreciated therefore we necessitated to open the incision completely suctioned out the area took cultures at this time for aerobes and anaerobes and then gave systemic antibiotics hemostasis was achieved with electrocautery and few areas of subcutaneous and fatty tissue was controlled with 3-0 silk interrupted sutures although had generalized small oozing on both subcuticular aspect of the incision The wound was freed from any gross ischemic tissue which was very minimal the periwound on both flaps was intact No obvious compromise of the fascial closure of the Pfannenstiel incision Once we had unroofed the incision throughout its length and we packed it with 2 inch Kerlix moist in a hole incision and held it together few interrupted 2-0 nylon skin edges The procedure was tolerated well by the patient estimate blood loss 50 cc Addendum Magdalena Vasquez physician executive assistant to general counsel was present throughout the case and helped the retraction exposure and wound closure Talk to her mother Ariadna postoperatively waiting area in the hospital and told her that the best we keep the patient overnight likely place a VAC system tomorrow Surgeon Patrick Sheppard MD, FACS Websphere Portal Architect sterling jacobs Estimated Blood Loss 50 Findings Consistent with Post-Op Diagnosis Wound dehiscence Pfannenstiel incision 5 days postop with extensive undermining of the subcuticular closure bilaterally throughout the length of the incision Specimens MELT HELPER of cavitary fluid Drains 2 inch Kerlix packing moist to dry Indications Wound dehiscence with significant undermining of the incision 5 days after C- section on 13 February with significant drainage noted this with iodoform packing in 1 area but extending undermining to the abdominal wall Description of Procedure merda I attest to the content of the Intraoperative Record and any orders documented therein. Any exceptions are noted below.
--- NOTE | 2022-02-21 14:46 | Anesthesiology Progress Note ---
Date of Service February 21, 2022 Anesthesia Post Procedure Vital Signs Vital Signs: Temp Pulse Resp BP Pulse Ox 02/21/22 14:30 36.6 C 75 16 130/74 97 02/21/22 14:15 70 16 128/74 96 02/21/22 14:00 70 13 120/80 97 02/21/22 13:50 72 21 137/73 98 02/21/22 13:40 36.6 C 68 19 121/81 99 02/21/22 13:30 69 13 126/68 98 02/21/22 13:20 75 15 118/76 98 02/21/22 13:10 76 18 110/74 98 02/21/22 12:59 36.1 C L 87 20 110/62 97 02/21/22 10:55 37.4 C 78 20 158/87 H 99 Pain Intensity Abdomen: Pain Intensity: 2 Transfer of Care Handoff Completed per policy Notes Mental Status: alert / awake / arousable and participated in evaluation Patient Amnestic to Procedure: Yes Nausea / Vomiting: adequately controlled Pain: adequately controlled Airway Patency, RR, SpO2: stable & adequate BP & HR: stable & adequate Hydration State: stable & adequate Anesthetic Complications: no major complications apparent
[2022-02-21] MEDS: LACTATED RINGER'S 1,000 ML IV SCH (15:05)
[2022-02-21] MEDS ORDERED: ACETAMINOPHEN 325 MG TAB PO PRN (15:19)
[2022-02-21] MEDS ORDERED: MoRPHine SULFATE 2 MG/ML CARP IV PRN (15:19)
[2022-02-21] MEDS ORDERED: oxyCODONE/ACETAMINOPHEN 5mg/325mg TAB PO PRN (15:19)
[2022-02-21] MEDS ORDERED: PIPERACILLIN/TAZOBACTAM 4.5 GM in DEXTROSE 5% 100 ML IV ONE (15:45)
[2022-02-21] MEDS: oxyCODONE/ACETAMINOPHEN 5mg/325mg TAB PO PRN ×2 (16:31→21:59)
[2022-02-21 16:58] LABS: Creatinine Clr Calc Pharmacy 121.3 ml/min; Est GFR (African American) 105.8 ml/min; Est GFR (Non-African American) 91.3 ml/min
[2022-02-21] MEDS: LABETALOL HCL 200 MG TAB PO SCH (20:41)
[2022-02-21] MEDS: PIPERACILLIN/TAZOBACTAM 4.5 GM in DEXTROSE 5% 100 ML IV SCH (21:49)
[2022-02-22] MEDS: LACTATED RINGER'S 1,000 ML IV SCH (05:21)
[2022-02-22] MEDS: PIPERACILLIN/TAZOBACTAM 4.5 GM in DEXTROSE 5% 100 ML IV SCH ×2 (05:21→14:00)
[2022-02-22 07:55] LABS: Anion Gap 9 (3-11); BUN Creatinine Ratio 14.6 (10-20); Blood Urea Nitrogen 15 mg/dl (6-23); Calcium 7.6 mg/dl (8.5-10.1); Carbon Dioxide 21 mmol/L (21-32); Chloride 108 mmol/L (98-107); Creatinine Clr Calc Pharmacy 101.2 ml/min; Est GFR (African American) 85.1 ml/min; Est GFR (Non-African American) 73.4 ml/min; Glucose 105 mg/dl (70-99(Fasting)); Sodium 138 mmol/L (136-145)
[2022-02-22] MEDS: LABETALOL HCL 200 MG TAB PO SCH (08:13)
--- NOTE | 2022-02-22 08:18 | Surgery Progress Note ---
Date of Service February 22, 2022 Assessment & Plan (1) Wound dehiscence: Plan: Operative finding was discussed with the patient and actually marc a picture associated with vision what we did Wound nurse has been consulted will be seen later today hopefully a VAC system can be placed and the patient can be discharged after that is done to follow-up with the wound clinic We will keep her on antibiotics until final cultures completed sent home on Augmentin 875 twice daily Restrictions once she gets home is do not lift anything heavier than 10 pounds until seen in clinic next week Prescription for the VAC system signed New addendum preliminary cultures of the wound showed staph species Admission and Anticipated Discharge Date Admission Date: February 21, 2022 Subjective Overall feels well since her surgery yesterday she has not required anything for pain and tolerated a diet Physical Exam Physical Exam: She is alert coherent laying in bed without any acute issues The abdomen was benign the dressing that was put on yesterday is intact moderate amount of seepage noted on the ABD pads Results & Data ([facility]) Vital Signs (Past 12 Hours) Vital Signs Temp Pulse Resp BP Pulse Ox 02/22/22 07:56 37.1 C 83 17 128/83 98 02/21/22 20:40 37.0 C 89 16 121/74 99 PG Care Time/CCT Total # of Minutes Spent Total Time Spent with Patient: Total time spent is greater than 50% in coordination of care (as documented) at patient's floor/unit and/or counseling patient: Coding Level of Care Code 21759 Subseq Obs Care Lvl 3 Diagnoses Wound dehiscence T81.30XA
[2022-02-22 08:58] LABS: Basophils # (auto) 0.09 K/uL (0-0.2); Basophils % (auto) 0.7 %; Eosinophils # (auto) 0.48 K/uL (0-0.5); Eosinophils % (auto) 3.8 %; Hematocrit (blood only) 36.5 % (37-47); Hemoglobin 11.9 g/dL (12.0-16.0); Immature Granulocytes # (auto) 0.02 K/uL (0.00-0.02); Immature Granulocytes % (auto) 0.2 %; Lymphocytes # (auto) 3.27 K/uL (1.2-3.4); Mean Corpuscular Hemoglobin 28.5 pg (25-34); Mean Corpuscular Hgb Conc 32.6 g/dL (32-36); Mean Corpuscular Volume 87.5 fL (80-100); Mean Platelet Volume 8.4 fL (7.4-10.4); Monocytes # (auto) 0.77 K/uL (0.11-0.59); Monocytes % (auto) 6.1 %; Neutrophils # (auto) 7.93 K/uL (1.4-6.5); Neutrophils % (auto) 63.2 %; Platelet Count 467 K/uL (130-400); RDW Coefficient of Variation 14.2 % (11.5-14.5); RDW Standard Deviation 46.1 fL (36.4-46.3); Red Blood Count 4.17 M/uL (4.2-5.4); White Blood Count 12.56 K/uL (4.8-10.8)
[2022-02-22] MEDS ORDERED: PANTOprazole 40 MG TAB PO SCH (09:00)
[2022-02-22] MEDS ORDERED: PRENATAL VITAMIN 1 TAB PO SCH (09:00)
--- NOTE | 2022-02-26 14:38 | Discharge Summary ---
Date of Service February 26, 2022 Principal Diagnosis wound dehiscence Discharge Exam awake/alert Gastrointestinal (Abdomen) Inspection/Auscultation: + abdominal surgical incision (wound vac placed) Discharge Data Allergies Allergy/AdvReac Type Severity Reaction Status Date / Time No Known Allergies Allergy Verified 02/25/22 10:37 Procedures Performed Operation Date: 02/21/22 11:50 Actual Procedures p Debridement of Pfannenstiel Wound Dehiscence, Unroofing of Wound Closure, Culture and Sensitivity and Packing of Wound(Not Applicable) - Patrick Sheppard MD, FACS Hospital Course (1) Wound dehiscence: This is a 31yF who presented to the [facility] on 02/21/22 for debridement of wound dehiscence from a prior incision. This was performed in the OR with Dr. Sheppard. The patient tolerated the procedure well, see op note for full details. The patient recovered in the PACU and was transferred [facility] floor in stable condition with kerlex packing in place. Post op she remained on IV abx and her diet was advanced. Pain was manageable. On POD#1 the wound care nurses evaluated the wound and placed a wound vac. OR cultures growing MRSA and he antibiotic was changed to Bactrim to complete a course of therapy as an outpatient. She was scheduled to follow up in the wound care clinic for 3x/weekly wound vac changes. The patient was discharged to home without event. Total Time Total Time Spent Total Time Spent (In Minutes): 15 Discharge Plan Discharge Items Patient Disposition: Home - Self-Care Reason For Visit: Non Healing Surgical Wound (), Wound Dehi Discharge Diagnosis: wound dehiscence Activity: Per Instructions section Lifting: No more than 10 pounds Bathing Comment: may shower; no soaking in tubs/pools Exercise/Sports: Wait until after follow-up appointment Driving/Machine Use: no driving while taking narcotics for pain Non-emergency contact: Surgeon Call non-emergency contact if: you have any medication questions, your symptoms worsen, your pain is not controlled, your pain is worsening, your pain is concerning for you, you have a fever, your temperature is above 101.5, your wound has increased redness, your wound has increased drainage and your wound pain has increased Follow-up/Referrals: Patrick Sheppard MD, FACS [Surgeon] - 03/01/22 10:15 am (Please call to follow up in clinic within 1 week) Rehan Her DO [Primary Care Provider] - Diet: Regular Addtl Attending Provider Instructions: Your wound vac should be changed 3x/week on //. Black foam, 125mmhg continuous suction You will be followed up in the wound care clinic for wound vac changes. You have follow up scheduled with them this upcoming Friday02/25/22 at 10:00am [address] [place] [address], [place] [address] #[phone] Please complete the full course of antibiotics prescribed to you. You are not , but if you decide to do so, there is limited data on nursing and taking the antibiotic Bactrim. So please check with your physician prior to consideration of providing your baby with breast milk should that be a decision you wish to make in the future while you are taking Bactrim. You may take Tylenol and/or Ibuprofen if needed for pain purchased over the counter. Follow label instructions Pending Studies at Discharge: No Stand-Alone Forms: My [facility] Medications and DC Order Prescriptions: New sulfamethoxazole-trimethoprim [Bactrim DS] 800-160 mg tablet 1 tab PO BID 10 Days Qty: 20 RF: 0 Continued pantoprazole [Protonix] 40 mg tablet,delayed release (DR/EC) 40 mg PO QAM RF: 0 labetalol 100 mg tablet 200 mg PO BID RF: 0 cholecalciferol (vitamin D3) [Vitamin D3] 25 mcg (1,000 unit) Capsule 25 mcg PO QAM RF: 0 prenat.vits,navi,lkq-hoel-hmpsk Tablet 1 tab PO QAM RF: 0 Discharge Orders: Discharge Order (Routine); Ordered 02/22/22 Ordered By: Magdalena Chang Admission Data Admit Date/Time: 02/21/22 13:03 Attending Provider: Patrick Sheppard Admit Provider: Patrick Sheppard Primary Care Provider: Rehan Her Other Interventions: Discharge Summary Assessment (RN) Last Done: 02/22/22 12:19 Coding Level of Care Code D/C DAY MANAGEMENT <30 MINS Diagnoses Wound dehiscence T81.30XA
== END 2022-02-22 14:41 | disposition home or self-care (01) ==
LOC: 3E 10:32 → ASU 10:32